=== PATIENT | male | born 1980 | race Caucasian/White ===

== ENCOUNTER 2017-06-10 18:49 | Emergency (ER) | payer SELFPAY | END 2017-06-10 21:36 | disposition left against medical advice (07) | PROVIDERS: Emergency Provider Emergency Medicine; Family Provider Family Medicine; PCP Family Medicine | DX: Z53.29 Procedure and treatment not carried out because of patient's decision for other reasons (principal) ==

== ENCOUNTER 2017-06-11 06:32 | Emergency (ER) | payer SELFPAY ==
[2017-06-11 07:04] VITALS: BP 157/101; PULSE 93; RESP 14; O2SAT 96; BMI 26.6
--- NOTE | 2017-06-11 07:13 | PC.NURSE ---
0710- DR. FOURNIER SPOKE WITH AND PT WILL GO TO OFFICE AT 0900 AM.
--- NOTE | 2017-06-11 07:22 | HMH.EDEYEP ---
ED Disposition Clinical Impression: Bronchitis Conjunctivitis Qualifiers: Conjunctivitis type: unspecified Laterality: bilateral Qualified Code(s): H10.9 - Unspecified conjunctivitis Disposition: Home, Self-Care Condition on Discharge: Good Instructions: DI for Acute Bronchitis Additional Instructions: see dr gonzalez at 0900 and use meds as directed Prescriptions: Azithromycin [Zithromax 250mg tab] 250 mg PO DIRECTED #6 tab Benzonatate [Tessalon Perle 100mg Cap] 100 mg PO TID #30 cap predniSONE [Prednisone 20mg Tab] 20 mg PO DAILY #10 tab - Critical Care Critical Care Time: No Attestation: On , the high probability of a clinically significant, sudden or life threatening deterioration of the following system(s) required my full and direct attention, intervention and personal management. The time I documented below is in addition to time spent performing reported procedures but includes the following listed in this critical care notation. Medical Decision Making - Medical Records Medical records reviewed: Yes: I reviewed the patient's medical records. Vital Signs: 06/11/17 07:04 Pulse Rate [Right Brachial] 93 H Respiratory Rate 14 Blood Pressure [Right Arm] 157/101 Blood Pressure Mean [Right Arm] 119 Blood Pressure Source [Right Arm] Automatic Cuff Blood Pressure Position [Right Arm] Supine 02 Sat by Pulse Oximetry 96 Oxygen Delivery Method Room Air - Physician Consults Physician Consulted: carlos Reason -: Pt condition - [place] Inquiry Pt receiving controlled substance: No Eye Problem HPI - General Chief complaint: Upper Respiratory Infection Stated complaint: both eyes, matted shut,cough Time Seen by Provider: 06/11/17 07:22 Mode of Arrival: Family Vehicle Source of Information: Patient, Significant Other, Medical Record Limitations: No Limitations Description of Symptoms (Recalled from ER Triage Doc. by RN): PT C/O BILATERAL EYE DRAINAGE AND CHEST CONGESTION. - History of Present Illness HPI Narrative: over the last 2 days has eye drainage and has prod cough chief complaint: eye pain Onset (ago): day(s) Onset description: gradual Location: both eyes Eye Symptoms: discharge, photophobia Place: home Severity: moderate Context: contact lens use - Related Data Previous Rx's Medication Instructions Recorded Azithromycin [Zithromax 250mg 250 mg PO DIRECTED #6 tab 06/11/17 tab] Benzonatate [Tessalon Perle 100mg 100 mg PO TID #30 cap 06/11/17 Cap] predniSONE [Prednisone 20mg 20 mg PO DAILY #10 tab 06/11/17 Tab] Allergies Allergy/AdvReac Type Severity Reaction Status Date / Time No Known Allergies Allergy Verified 05/29/17 09:11 [facility] History I have reviewed the patient's past medical history: Yes Medical History: Denies:: Cancer, Diabetes Mellitus Type 1, Diabetes Mellitus Type 2, MRSA Laterality Cases: Bilateral: Arthroscopy Knee Amputation: No - *Social History Smoking Status: Never smoker Alcohol Intake: never - Psychiatric History Expresses thoughts of harming self/others: None Suicide Plan Description: No Plan ROS Obtained: Yes All systems reviewed & no additional complaints - Constitutional Constitutional: Denies fever(s) - Eyes Eyes: Reports change in vision, Reports eye discharge, Reports requires corrective lenses - ENT Ears, Nose, Mouth, and Throat: Denies sore throat - Cardiovascular Cardiovascular: Denies chest pain at rest - Respiratory Respiratory: Yes cough, No non-productive cough, No coughing up blood - Gastrointestinal Gastrointestingal: Denies: abdominal pain - Musculoskeletal Musculoskeletal: Denies joint pain - Integumentary/Breasts Skin/Breast: Denies rash - Neurologic Neurologic: Denies seizure-like activity Physical Exam - General General appearance: in no apparent distress - Head Head exam: normocephalic - Eye Eye exam: Present: PERRL, EOMI, conjunctival injection
--- NOTE | 2017-06-11 07:25 | ED_ITS ---
ED Disposition Clinical Impression: Bronchitis Conjunctivitis Qualifiers: Conjunctivitis type: unspecified Laterality: bilateral Qualified Code(s): H10.9 - Unspecified conjunctivitis Disposition: Home, Self-Care Condition on Discharge: Good Instructions: DI for Acute Bronchitis Additional Instructions: see dr gonzalez at 0900 and use meds as directed Prescriptions: Azithromycin [Zithromax 250mg tab] 250 mg PO DIRECTED #6 tab Benzonatate [Tessalon Perle 100mg Cap] 100 mg PO TID #30 cap predniSONE [Prednisone 20mg Tab] 20 mg PO DAILY #10 tab - Critical Care Critical Care Time: No Attestation: On , the high probability of a clinically significant, sudden or life threatening deterioration of the following system(s) required my full and direct attention, intervention and personal management. The time I documented below is in addition to time spent performing reported procedures but includes the following listed in this critical care notation. Medical Decision Making - Medical Records Medical records reviewed: Yes: I reviewed the patient's medical records. Vital Signs: 06/11/17 07:04 Pulse Rate [Right Brachial] 93 H Respiratory Rate 14 Blood Pressure [Right Arm] 157/101 Blood Pressure Mean [Right Arm] 119 Blood Pressure Source [Right Arm] Automatic Cuff Blood Pressure Position [Right Arm] Supine 02 Sat by Pulse Oximetry 96 Oxygen Delivery Method Room Air - Physician Consults Physician Consulted: carlos Reason -: Pt condition - [place] Inquiry Pt receiving controlled substance: No Eye Problem HPI - General Chief complaint: Upper Respiratory Infection Stated complaint: both eyes, matted shut,cough Time Seen by Provider: 06/11/17 07:22 Mode of Arrival: Family Vehicle Source of Information: Patient, Significant Other, Medical Record Limitations: No Limitations Description of Symptoms (Recalled from ER Triage Doc. by RN): PT C/O BILATERAL EYE DRAINAGE AND CHEST CONGESTION. - History of Present Illness HPI Narrative: over the last 2 days has eye drainage and has prod cough chief complaint: eye pain Onset (ago): day(s) Onset description: gradual Location: both eyes Eye Symptoms: discharge, photophobia Place: home Severity: moderate Context: contact lens use - Related Data Previous Rx's Medication Instructions Recorded Azithromycin [Zithromax 250mg 250 mg PO DIRECTED #6 tab 06/11/17 tab] Benzonatate [Tessalon Perle 100mg 100 mg PO TID #30 cap 06/11/17 Cap] predniSONE [Prednisone 20mg 20 mg PO DAILY #10 tab 06/11/17 Tab] Allergies Allergy/AdvReac Type Severity Reaction Status Date / Time No Known Allergies Allergy Verified 05/29/17 09:11 [facility] History I have reviewed the patient's past medical history: Yes Medical History: Denies:: Cancer, Diabetes Mellitus Type 1, Diabetes Mellitus Type 2, MRSA Laterality Cases: Bilateral: Arthroscopy Knee Amputation: No - *Social History Smoking Status: Never smoker Alcohol Intake: never - Psychiatric History Expresses thoughts of harming self/others: None Suicide Plan Description: No Plan ROS Obtained: Yes All systems reviewed & no additional complaints - Constitutional Constitutional: Denies fever(s) - Eyes Eyes: Reports change in vision, Reports eye discharge
[2017-06-11 07:39] VITALS: BP 138/70; PULSE 96; RESP 16; TEMP 37; O2SAT 98
== END 2017-06-11 07:40 | disposition home or self-care (01) ==
PROVIDERS: Emergency Provider Emergency Medicine; Family Provider Family Medicine; PCP Family Medicine
DX: H10.9 Unspecified conjunctivitis; J40 Bronchitis, not specified as acute or chronic
CPT/HCPCS: 99282

== ENCOUNTER → 2017-10-15 08:16 | Outpatient (CLI) | payer BC, SELFPAY ==
--- NOTE | 2017-10-15 08:19 | XR_ITS ---
XR clavicle LT CLINICAL INDICATION: Follow-up fracture/ORIF ITS.REASON: 2 wks post op LT Clavicle ORIF ORDERING PHYSICIAN: Chintan Jackson MD PATIENT AGE: 37 years Comparison: 09/30/2017 FINDINGS: Bone plate remains in place stabilizing comminuted mid shaft fibular fracture which remains in good alignment. There may be some minimal callus formation at the fracture site inferiorly. IMPRESSION: Status post ORIF and shaft comminuted clavicular fracture with good alignment and early healing
== END ==
PROVIDERS: PCP Family Medicine; Visit Provider Orthopaedic Surgery
DX: S43.1 Subluxation and dislocation of acromioclavicular joint (principal)
CPT/HCPCS: 73000

== ENCOUNTER → 2017-10-29 09:24 | Outpatient (CLI) | payer BC, SELFPAY ==
--- NOTE | 2017-10-29 09:27 | XR_ITS ---
XR clavicle LT CLINICAL INDICATION: Follow-up clavicle fracture ITS.REASON: S/P LT CLAVICLE ORIF ORDERING PHYSICIAN: Chintan Jackson MD PATIENT AGE: 37 years Comparison: 10/15/2017 FINDINGS: Bone plate remains over the mid shaft clavicle fracture with good alignment of the fracture fragments. Fracture lines may be slightly less apparent which may be seen with early healing. IMPRESSION: With good alignment status post ORIF comminuted mid shaft clavicle fracture
== END ==
PROVIDERS: PCP Family Medicine; Visit Provider Orthopaedic Surgery
DX: S43.1 Subluxation and dislocation of acromioclavicular joint (principal)
CPT/HCPCS: 73000

== ENCOUNTER → 2018-01-31 08:35 | Outpatient (CLI) | payer BC, SELFPAY ==
--- NOTE | 2018-01-31 08:40 | XR_ITS ---
XR clavicle LT CLINICAL INDICATION: Follow-up fracture. ITS.REASON: S/P LT CLAVICLE ORIF ORDERING PHYSICIAN: Chintan Jackson MD PATIENT AGE: 37 years Comparison: 10/29/2017 FINDINGS: Bone plate remains in place overlying the mid shaft clavicular fracture with good alignment with some increasing callus formation. Fracture line appears less apparent. No significant displacement. IMPRESSION: Healing left mid shaft clavicular fracture with good alignment status post ORIF
== END ==
PROVIDERS: PCP Family Medicine; Visit Provider Orthopaedic Surgery
DX: S42.002A Fracture of unspecified part of left clavicle, initial encounter for closed fracture (principal)
CPT/HCPCS: 73000